=== PATIENT | female | born 1980 | race Two or more races ===

== ENCOUNTER 2017-10-23 11:11 | Emergency (ER) | payer MEDICAID ==
[~2017-10-23] VITALS: Ht 162.6 cm; Wt 67.1 kg
[2017-10-23 11:17] VITALS: Ht 162.6 cm; Wt 67.1 kg
[2017-10-23 11:53] VITALS: BP 105/62
== END 2017-10-23 11:53 | disposition home or self-care (01) ==
LOC: ED 11:11
DX: H57.8 Other specified disorders of eye and adnexa (principal)